=== PATIENT | female | born 1940 | race Caucasian/White ===

== ENCOUNTER 2019-08-30 10:30 | Observation (INO) | payer OTHER ==
[~2019-08-30] VITALS: Ht 152.4 cm; Wt 65.4 kg
[~2019-08-30 10:30] MED LIST: B/P MED; CHILDREN'S ASPI81 M1 PO; CIPRO250 M1 PO; HYDROCHLOROTHIA25 M2 PO; LISINOPRIL20 MG PO; OXYBUTYNIN 5 MG5 M2 PO
[2019-08-30 10:35] VITALS: BP 82/34
[2019-08-30] MEDS ORDERED: HYDROCHLOROTHIA25 M2 PO ×2 (10:38)
[2019-08-30] MEDS ORDERED: AUGMENTIN 875-1 EACH PO ×2 (10:39)
[2019-08-30] MEDS ORDERED: OXYBUTYNIN 5 MG5 M2 PO ×2 (10:39)
[2019-08-30] MEDS ORDERED: ZESTRIL40 MG PO ×2 (10:39)
[2019-08-30] MEDS ORDERED: TESSALON PERLE100 M1 PO ×2 (10:39)
[2019-08-30 11:27] LABS: HEMATOCRIT 26.3 % (37.0-47.0); HEMOGLOBIN 8.5 gm/dL (12.0-15.0); MCH 21.4 pg (26.0-34.0); MCHC 32.3 g/dL (28.0-37.0); MCV 66.4 fL (80.0-100.0); MPV 6.5 fl. (7.2-11.1); NUCLEATED RBCS 0 /100WBC; PLATELET COUNT* 308 thou/uL (150-400); RBC 3.96 mil/uL (4.20-5.00); RDW-CV 18.6 % (10.5-14.5); WBC 8.9 thou/uL (4.0-11.0)
[2019-08-30 11:36] LABS: PROTIME 10.5 Seconds (9.20-11.50)
[2019-08-30 11:37] LABS: CALCIUM 8.6 mg/dL (8.5-10.1); CREATININE 1.5 mg/dL (0.6-1.3); POTASSIUM 3.2 mmol/L (3.5-5.1)
[2019-08-30 11:48] LABS: ALBUMIN 3.2 g/dL (3.4-5.0); TOTAL BILIRUBIN 0.3 mg/dL (<0.1-1.0); TOTAL PROTEIN 6.7 g/dL (6.4-8.2)
[2019-08-30 12:01] LABS: ABSOLUTE LYMPHOCYTES 0.4 thou/uL (0.8-5.3); ABSOLUTE MONOCYTES 0.1 thou/uL (0.0-1.2); ABSOLUTE NEUTROPHILS 8.4 thou/uL (1.6-8.1); PLATELET ESTIMATE ADEQUATE
[2019-08-30 12:02] LABS: ANISOCYTOSIS 2+; HYPOCHROMASIA 1+; MICROCYTES 2+; OVALOCYTES 1+; POIKILOCYTOSIS 1+
[2019-08-30 13:33] VITALS: BP 127/55
--- NOTE | 2019-08-30 15:36 | 2DMMODE ---
[place] [address] 2 D/M-MODE ECHOCARDIOGRAM Name: CARMELO GARDUNO Room: [facility] William#: [id number] Admission: 08/30/19 Attend Phys: Luigi Bravo MD Discharge: Date of : 42 Date of Service: 08/30/19 1536 Report #: [id number] THIS REPORT FOR: //name// APPROVED REPORT Study performed: 08/30/2019 14:51:17 EXAM: Comprehensive 2D, Doppler, and color-flow Echocardiogram Patient Location: In-Patient Room #: [facility] Status: routine BSA: 1.53 HR: 69 bpm BP: 127/55 mmHg Rhythm: NSR Other Information Study Quality: Good Indications Syncope 2D Dimensions IVSd: 12.73 (7-11mm) LVOT Diam: 18.51 (18-24mm) LVDd: 44.63 mm PWd: 10.82 (7-11mm) Ascending Ao: 27.66 (22-36mm) LVDs: 19.00 (25-40mm) Aortic Root: 26.97 mm Volumes Left Atrial Volume (Systole) LA ESV Index: 31.30 mL/m2 Aortic Valve AoV Peak Vasquez.: 1.75 m/s AO Peak Gr.: 12.22 mmHg LVOT Max P.71 mmHg AO Mean Gr.: 6.18 mmHg LVOT Mean P.90 mmHg LVOT Max V: 1.30 m/s AO V2 VTI: 37.30 cm LVOT Mean V: 0.77 m/s JESSICA (VTI): 2.02 cm2 LVOT V1 VTI: 27.94 cm Mitral Valve E/A Ratio: 0.71 MV Decel. Time: 267.28 ms MV E Max Vasquez.: 0.86 m/[place] [address] 2 D/M-MODE ECHOCARDIOGRAM Name: CARMELO GARDUNO Kevon Room: [address] MJae#: [id number] Admission: 08/30/19 Attend Phys: Luigi Bravo MD Discharge: Date of : 42 Date of Service: 08/30/19 1536 Report #: [id number] MV PHT: 77.51 ms MVA (PHT): 2.84 cm2 TDI E/Lateral E': 9.56 E/Medial E': 10.75 Medial E' Vasquez.: 0.08 m/s Lateral E' Vasquez.: 0.09 m/s Pulmonary Valve PV Peak Vasquez.: 1.19 m/s PV Peak Gr.: 5.65 mmHg Tricuspid Valve RAP Estimate: 5.00 mmHg TR Peak Gr.: 25.93 mmHg RVSP: 30.00 mmHg PA Pressure: 30.00 mmHg Left Ventricle The left ventricle is normal size. There is normal LV segmental wall motion. Mild concentric left ventricular hypertrophy. Left ventricular systolic function is normal. The left ventricular ejection fraction is within the normal range. LVEF is 65%. Grade I - abnormal relaxation pattern. Right Ventricle The right ventricle is normal size. The right ventricular systolic function is normal. Atria Left atrium is moderately dilated. The right atrium size is normal. Aortic Valve Mild aortic valve sclerosis. No aortic regurgitation is present. There is no aortic valvular stenosis. Mitral Valve The mitral valve is normal in structure. Mild mitral regurgitation. No evidence of mitral valve stenosis. Tricuspid Valve The tricuspid valve is normal in structure. Trace tricuspid regurgitation. Pulmonic Valve The pulmonary valve is normal in structure. There is no pulmonic [place] [address] 2 D/M-MODE ECHOCARDIOGRAM Name: CARMELO GARDUNO [address] [id number] Admission: 08/30/19 Attend Phys: Luigi Bravo MD Discharge: Date of : 42 Date of Service: 08/30/19 1536 Report #: [id number] Great Vessels The aortic root is normal in size. IVC is normal in size and collapses >50% with inspiration. Pericardium There is no pericardial effusion. <Conclusion> The left ventricle is normal size. Mild concentric left ventricular hypertrophy. Left ventricular systolic function is normal. The left ventricular ejection fraction is within the normal range. LVEF is 65%. Grade I - abnormal relaxation pattern. The right ventricle is normal size. Left atrium is moderately dilated. The right atrium size is normal. Mild aortic valve sclerosis. No aortic regurgitation is present. There is no aortic valvular stenosis. The mitral valve is normal in structure. Mild mitral regurgitation. The tricuspid valve is normal in structure. IVC is normal in size and collapses >50% with inspiration. There is no pericardial effusion. There is normal LV segmental wall motion. <ELECTRONICALLY SIGNED> By: Gurwinder Pinzon MD, FACC 08/30/19 1536 1536 1536 Gurwinder Pinzon MD, FACC /INF
--- NOTE | 2019-08-30 15:42 | EKG ---
[place] [address] ELECTROCARDIOGRAM REPORT Name: HERMESJOHN PAULCARMELO Kevon Room: [address] M.R.#: [id number] Admission: 08/30/19 Attend Phys: Luigi Bravo MD Discharge: Date of : 42 Report #: [id number] THIS REPORT FOR: //name// [facility] ED Test Date: 2019-08-30 Test Time: 11:08:50 Pat Name: CARMELO GARDUNO Department: Room: [facility] Gender: F [employer]: : 1940 Requested By: Venkat Randolph Order Number: [id number] : Gurwinder Pinzon Measurements Intervals [place] Rate: 69 P: 29 MI: 167 QRS: 62 QRSD: 95 T: 65 QT: 423 QTc: 454 Interpretive Statements Sinus rhythm Baseline wander in lead(s) V3 Compared to ECG 05/20/2014 15:54:27 Myocardial infarct finding no longer present Electronically Signed On 08-30-2019 15:42:05 TIP PRINTER by Gurwinder Pinzon [email or web address] <ELECTRONICALLY SIGNED> By: Gurwinder Pinzon MD, [facility] 08/30/19 1542 1108 [id number] Gurwinder Pinzon MD, [facility] /EPI
[2019-08-30 19:41] VITALS: BP 120/48
[2019-08-30 20:36] VITALS: BP 101/49
[2019-08-31] VITALS: BP 99/50
[2019-08-31 04:28] VITALS: BP 99/45
[2019-08-31 05:09] LABS: ABSOLUTE EOSINOPHILS 0.2 thou/uL (0.0-0.7); ABSOLUTE LYMPHOCYTES 1.1 thou/uL (0.8-5.3); ABSOLUTE MONOCYTES 0.5 thou/uL (0.0-1.2); ABSOLUTE NEUTROPHILS 2.8 thou/uL (1.6-8.1); BASOPHILS 0.9 %; EOSINOPHILS 3.4 %; HEMATOCRIT 23.8 % (37.0-47.0); HEMOGLOBIN 7.7 gm/dL (12.0-15.0); LYMPHOCYTES 24.6 %; MCH 21.3 pg (26.0-34.0); MCHC 32.2 g/dL (28.0-37.0); MCV 66.1 fL (80.0-100.0); MONOCYTES 10.7 %; MPV 6.3 fl. (7.2-11.1); NUCLEATED RBCS 0 /100WBC; PLATELET COUNT* 266 thou/uL (150-400); POLYS 60.4 %; RDW-CV 19.2 % (10.5-14.5); WBC 4.6 thou/uL (4.0-11.0)
[2019-08-31 05:54] LABS: CALCIUM 8.6 mg/dL (8.5-10.1); CREATININE 0.9 mg/dL (0.6-1.3); MAGNESIUM 1.6 mg/dL (1.8-2.4); POTASSIUM 3.9 mmol/L (3.5-5.1)
[2019-08-31 07:38] VITALS: BP 92/52
[2019-08-31 12:00] VITALS: BP 126/51
[2019-08-31] MEDS ORDERED: IRON325 PO ×2 (12:44)
[2019-08-31] MEDS ORDERED: REMERON15 MG PO ×2 (12:44)
[2019-08-31] MEDS ORDERED: MIRALAX119 GM PO ×2 (12:45)
[2019-08-31] MEDS ORDERED: PNV 29-1 TABLE1 EACH PO ×2 (12:45)
[2019-08-31 14:31] VITALS: BP 92/52
[2019-09-01] MEDS ORDERED: KEFLEX500 M1 PO (17:37)
[2019-09-01] MEDS ORDERED: NORCO 5-325 TA1 EAC1 PO (17:37)
[2019-09-01] MEDS ORDERED: BACTRIM DS TAB1 EACH PO (17:37)
== END 2019-08-31 17:00 | disposition home or self-care (01) ==
LOC: M.ERS 10:30 → M.TBA-ER 12:33 → M.2W 12:33
PROVIDERS: Emergency Medicine; ADMIT Family Medicine
DX: R55 Syncope and collapse (principal); I10 Essential (primary) hypertension; E86.0 Dehydration; G47.00 Insomnia, unspecified; K59.09 Other constipation; J40 Bronchitis, not specified as acute or chronic; N17.9 Acute kidney failure, unspecified; D50.9 Iron deficiency anemia, unspecified

== ENCOUNTER 2019-09-01 17:06 | Emergency (ER) | payer OTHER ==
[~2019-09-01] VITALS: Ht 152.4 cm; Wt 57.1 kg
[~2019-09-01 17:06] MED LIST changes: +AUGMENTIN 875-1 EACH PO; +IRON325 PO; +MIRALAX119 GM PO; +PNV 29-1 TABLE1 EACH PO; +REMERON15 MG PO; +TESSALON PERLE100 M1 PO; +ZESTRIL40 MG PO
[2019-09-01] MEDS ORDERED: NORCO 5-325 TA1 EAC1 PO (17:37)
[2019-09-01] MEDS ORDERED: KEFLEX500 M1 PO (17:37)
[2019-09-01] MEDS ORDERED: BACTRIM DS TAB1 EACH PO (17:37)
[2019-09-01 17:50] VITALS: BP 176/84
== END 2019-09-01 17:51 | disposition home or self-care (01) ==
LOC: M.ERS 17:06
DX: T80.89XA Other complications following infusion, transfusion and therapeutic injection, initial encounter (principal); I10 Essential (primary) hypertension; Y92.89 Other specified places as the place of occurrence of the external cause